=== PATIENT | female | born 1990 | race Two or more races ===

== ENCOUNTER 2021-06-16 15:45 | Observation (INO) | payer MEDICAID ==
[~2021-06-16] VITALS: Ht 162.6 cm; Wt 108.9 kg
== END 2021-06-16 17:00 | disposition home or self-care (01) ==
LOC: LDRP 15:45
PROVIDERS: ADMIT Obstetrics & Gynecology; ATTEND Obstetrics & Gynecology
DX: O26.893 Other specified pregnancy related conditions, third trimester (principal); R10.32 Left lower quadrant pain; Z3A.31 31 weeks gestation of pregnancy
CPT/HCPCS: 59025; 81002; 94760; G0378